=== PATIENT | female | born 2000 | race Two or more races ===

== ENCOUNTER → 2019-10-29 | Outpatient (CLI) | payer BC ==
--- NOTE | 2019-10-29 17:45 | RAD ---
EXAM: Ultrasound OB Greater than 14 weeks INDICATION: Reason: SIZE AND DATES / Spl. Instructions: / History: TECHNIQUE: Real-time obstetrical ultrasound was performed with permanent freeze-frame documentation. COMPARISON: None available FINDINGS: POSITION: Cephalic HEART RATE: 150 bpm RON: 15.1 cm PLACENTA: Posterior fundal CERVICAL LENGTH: 3.8 cm MATERNAL UTERUS: Unremarkable. MATERNAL ADNEXA: Unremarkable. AGE/DATES: Gestational Age by LMP: 20 weeks 3 days Gestation Age by US: 21 weeks 0 days EDC by LMP: March 14, 2020 EDC by US: March 10, 2020 WEIGHT: 354 grams +/- 52 grams PERCENTILE WEIGHT: Not estimated BIOMETRIC PARAMETERS: BPD: 5.4 cm corresponding with 22 weeks 3 days HC: 18.5 cm corresponding with 20 weeks 6 days AC: 14.9 cm corresponding with 20 weeks 1 day FL: 3.4 cm corresponding with 20 weeks 4 days ANATOMY: CARDIAC: Normal four chamber heart. Ventricle outflow tracts were not well visualized on this exam. UMBILICAL CORD: Normal 3 vessel cord. Normal cord insertion. BRAIN: Unremarkable. NOSE/LIPS: Not well seen SPINE: Unremarkable. EXTREMITIES: Not assessed in detail. STOMACH: Unremarkable. KIDNEYS: Unremarkable. BLADDER: Unremarkable. IMPRESSION: OB ultrasound demonstrating a single viable fetus in cephalic position. No gross abnormalities noted. nose and lips, extremities, and ventricular outflow tracts were not assessed in great detail on this exam. Estimated gestational age of 21 weeks 0 days and EDC of March 10, 2020. Electronically signed by: Greg Saldivar MD (10/29/2019 5:42 PM) [id number]
== END | disposition home or self-care (01) ==
LOC: US 10:17
PROVIDERS: ATTEND Obstetrics & Gynecology
DX: O26.842 Uterine size-date discrepancy, second trimester (principal); Z3A.21 21 weeks gestation of pregnancy
CPT/HCPCS: 76805

== ENCOUNTER → 2019-12-24 | Outpatient (CLI) | payer BC ==
[2019-12-24 11:15] LABS: BASO % 0 % (0-3); EOS % 1 % (0-3); HEMATOCRIT 32.4 % (36.0-47.0); HEMOGLOBIN 11.2 g/dL (12.0-15.5); LYMPH # 1.6 x10^3/uL (1.0-4.8); LYMPH % 22 % (24-48); MEAN CORPUSCULAR HEMOGLOBIN 32 pg (25-35); MEAN CORPUSCULAR HGB CONC 35 g/dL (31-37); MEAN CORPUSCULAR VOLUME 93 fL (79-100); MONO # 0.4 x10^3/uL (0.0-1.1); MONO % 5 % (0-9); NEUT % 72 % (31-73); PLATELET COUNT 210 x10^3/uL (140-400); RED BLOOD COUNT 3.48 x10^6/uL (3.50-5.40); RED CELL DISTRIBUTION WIDTH 13.3 % (11.5-14.5); WHITE BLOOD COUNT 6.9 x10^3/uL (4.0-11.0)
== END | disposition home or self-care (01) ==
LOC: LAB 09:23
PROVIDERS: ATTEND Obstetrics & Gynecology
DX: O09.93 Supervision of high risk pregnancy, unspecified, third trimester (principal); Z3A.29 29 weeks gestation of pregnancy
CPT/HCPCS: 36415; 82950; 85025

== ENCOUNTER 2020-03-03 11:15 | Inpatient (IN) | payer BC ==
[~2020-03-03] VITALS: Ht 177.8 cm; Wt 69.9 kg
[2020-03-03 12:06] LABS: BILIRUBIN,URINE NEGATIVE (NEG); CLARITY,URINE CLEAR; COLOR,URINE YELLOW; NITRITE,URINE NEGATIVE (NEG); PROTEIN,URINE NEGATIVE (NEG-TRACE); UROBILINOGEN,URINE 0.2 mg/dL (0.2 mg/dL)
[2020-03-03 12:15] LABS: AMNIO PT POSITIVE
[2020-03-03 12:23] LABS: BACTERIA,URINE MANY /HPF (0-FEW); RBC,URINE 0 /HPF (0-2)
[2020-03-03] MEDS ORDERED: IV RINGERS,LACTATED 1000ML 1,000 ML IV SCH (12:25)
[2020-03-03] MEDS ORDERED: CITRIC ACID/SODIUM CITRATE 30 ML SOLUTION. PO PRN (12:30)
[2020-03-03] MEDS ORDERED: LIDOCAINE 1% PF 30 ML VIAL. INJ PRN (12:30)
[2020-03-03] MEDS ORDERED: TERBUTALINE 1 MG/ML VIAL. SQ PRN (12:30)
[2020-03-03] MEDS ORDERED: 0.9 % SODIUM CHLORIDE 10 ML DISP.SYRIN. IV PRN ×2 (12:30→19:15)
[2020-03-03] MEDS ORDERED: IBUPROFEN 400 MG TABLET. PO PRN (12:30)
[2020-03-03] MEDS ORDERED: ACETAMINOPHEN 325 MG TABLET. PO PRN (12:30)
[2020-03-03] MEDS ORDERED: ONDANSETRON PF 4 MG/2 ML VIAL. IVP PRN (12:30)
[2020-03-03] MEDS ORDERED: fentaNYL PF VIAL 100 MCG/2 ML VIAL IVP PRN ×2 (12:30)
[2020-03-03] MEDS ORDERED: OXYTOCIN 30 UNIT/500 ML PREMIX 500 ML IV PRN ×3 (12:30→19:15)
[2020-03-03] MEDS ORDERED: OXYTOCIN 30 UNIT/500 ML PREMIX 500 ML IV ONE (13:00)
[2020-03-03] MEDS: IV RINGERS,LACTATED 1000ML 1,000 ML IV SCH ×3 (13:12→23:19)
[2020-03-03 13:23] LABS: BASO % 0 % (0-3); EOS % 0 % (0-3); HEMATOCRIT 35.6 % (36.0-47.0); HEMOGLOBIN 12.3 g/dL (12.0-15.5); LYMPH # 1.5 x10^3/uL (1.0-4.8); LYMPH % 19 % (24-48); MEAN CORPUSCULAR HEMOGLOBIN 31 pg (25-35); MEAN CORPUSCULAR HGB CONC 34 g/dL (31-37); MEAN CORPUSCULAR VOLUME 90 fL (79-100); MONO # 0.3 x10^3/uL (0.0-1.1); MONO % 4 % (0-9); NEUT % 76 % (31-73); PLATELET COUNT 214 x10^3/uL (140-400); RED BLOOD COUNT 3.96 x10^6/uL (3.50-5.40); RED CELL DISTRIBUTION WIDTH 13.5 % (11.5-14.5); WHITE BLOOD COUNT 7.9 x10^3/uL (4.0-11.0)
--- NOTE | 2020-03-03 17:15 | PDOC1 ---
OB - History Hx of Present Care: Good Care Ultrasounds: Normal mid trimester US Obstetrical Complications: None Medical Complications: None Past Family/Social History * Past Medical, Surgical, Family and Obstetric Histories reviewed from chart. Rubella: Immune RPR/VDRL: Negative GBS Status: Negative HBsAG: Negative OB - Chief Complaint & HPI Date of Admission: Date of Admission: Mar 03, 2020 at 11:15 Chief Complaint/History : 1 Para: 0 EGA: 38 Reason for admission: active labor, rupture of membranes Admission Nurse Assessment Rev: Yes OB - Admission Exam Physical Exam HEENT: Normal Heart: Regular Rate Lungs: Clear Abdomen: Gravid, Non tender, Soft Extremities: Edema Reflexes: Normal Cervical Dilatation: 1cm Effacement: 50% Station: -3 Membranes: Ruptured Amniotic Fluid: Clear Heart Rate: Normal Accelerations: Accelerations Present Contractions on Admission: 6-10 Minutes Apart Intensity: Mild Text A: 38 wks IUP SROM P: Admit labor management. ZHOU OLSON Jr, MD Mar 03, 2020 17:15
[2020-03-03] MEDS ORDERED: CITRIC ACID/SODIUM CITRATE 30 ML SOLUTION. PO ONE (17:45)
[2020-03-03] MEDS ORDERED: AZITHROMYCIN 500 MG in IV NORMAL SALINE 250ML 250 ML IV ONE (17:45)
[2020-03-03] MEDS ORDERED: ceFAZolin SODIUM IV Push 1 GM VIAL. IVP ONE ×2 (17:45→18:00)
[2020-03-03] MEDS ORDERED: KETOROLAC 30 MG/ML VIAL. IV PRN (18:00)
[2020-03-03] MEDS ORDERED: MORPHINE PF 10 MG/10 ML AMPUL. ONE (18:07)
[2020-03-03] MEDS ORDERED: fentaNYL PF VIAL 100 MCG/2 ML VIAL ONE (18:07)
[2020-03-03] MEDS ORDERED: FAMOTIDINE 20 MG/2 ML VIAL ONE (18:15)
[2020-03-03] MEDS ORDERED: ONDANSETRON PF 4 MG/2 ML VIAL. ONE (18:15)
[2020-03-03] MEDS ORDERED: METOCLOPRAMIDE HCL 10 MG/2 ML VIAL. ONE (18:15)
[2020-03-03] MEDS ORDERED: PHENYLEPHRINE in 0.9% NACL PF 1 MG/10 ML SYRINGE. IV ONE (18:25)
[2020-03-03] MEDS ORDERED: OXYTOCIN 10 UNIT/ML VIAL. ONE ×3 (18:25→18:48)
--- NOTE | 2020-03-03 19:02 | PDOC ---
OB DELIVERY OPERATIVE NOTE DATE 03/03/20 PRE OP DIAGNOSIS: NRFHT POST OP DIAGNOSIS: NRFHT OPERATION PERFORMED: L [facility] SURGEON Dr. Martinez ANESTHESIA PROPOSED: REGIONAL (Spinal) BLOOD LOSS 600 ml SPECIMEN placenta and infant OB Findings: Position (Vertex), Sex (Male), (8/9), Weight (3220 Gram), Nuchal Cord (x1) COMPLICATIONS none ADDITIONAL REMARKS pt. ZHOU Matson Jr, MD Mar 03, 2020 19:02
[2020-03-03] MEDS ORDERED: ZOLPIDEM 5 MG TABLET. PO PRN (19:15)
[2020-03-03] MEDS ORDERED: diphenhydrAMINE ORAL ELIXIR 12.5 MG/5 ML ML PO PRN (19:15)
[2020-03-03] MEDS ORDERED: ONDANSETRON PF 4 MG/2 ML VIAL. IV PRN (19:15)
[2020-03-03] MEDS ORDERED: MAG HYDROX/ALUMINUM HYD/SIMETH 30 ML ORAL.SUSP PO PRN (19:15)
--- NOTE | 2020-03-03 19:28 | OP ---
DATE OF SURGERY: 03/03/2020 PREOPERATIVE DIAGNOSES: 1. A 38 weeks intrauterine . 2. Spontaneous rupture of membranes. 3. intolerance of labor. POSTOPERATIVE DIAGNOSES: 1. A 38 weeks intrauterine . 2. Spontaneous rupture of membranes. 3. intolerance of labor. PROCEDURE: Primary low transverse section. SURGEON: Zhou Martinez MD ANESTHESIA: Spinal. ESTIMATED BLOOD LOSS: 600 mL. COMPLICATIONS: None. FINDINGS: Viable male , Apgars 8 and 9, weight 7 pounds 2 ounces. Three-vessel cord placenta delivered manually intact. SUMMARY: A 19-year-old 1 at 38 weeks, presented with spontaneous rupture of membranes. She had dilated up to 4 cm and began having intolerance to labor with nonreassuring heart tones. The patient was counseled on the risks, benefits and expectations of emergent section. She voiced clear understanding to proceed. DESCRIPTION OF PROCEDURE: The patient was taken to surgery suite and placed in dorsal supine position where she was prepped with ChloraPrep and draped in sterile fashion. After adequate anesthesia, Pfannenstiel skin incision was made with a scalpel down to and through the fascia. Fascia was extended laterally using curved Kelley scissors. The superior edge of fascia was grasped with two Lilibeth clamps and dissected free of the abdominal rectus muscle using blunt dissection along with Bovie cautery. The same process took place inferiorly. The abdominal rectus muscle dissected bluntly at the midline. Peritoneum was grasped with 2 hemostats and entered sharply with Metzenbaum scissors. This incision was extended superiorly as well as inferiorly. The Brijesh ring retractor was placed. A low transverse hysterotomy incision was made with scalpel down to the . Hysterotomy incision was extended laterally and superiorly digitally. With the aid of fundal pressure, the infant's head was delivered in a smooth atraumatic manner. Nuchal cord x 1 was visualized and reduced. With additional fundal pressure, the anterior shoulder was delivered followed by posterior shoulder and rest of the male was delivered. Infant was suctioned with a bulb syringe orally and nasally, umbilical cord was clamped twice and cut. Umbilical cord blood as well as arterial pH was then obtained. Three-vessel cord placenta was delivered manually intact. The uterus was then exteriorized and cleared of clot and debris with moist lap. Hysterotomy incision was reapproximated using #1 Vicryl suture in running locked fashion, imbricated layer of #1 Vicryl suture was utilized in a running fashion for better hemostasis. Uterus palpated firm. Fallopian tubes and ovaries appeared normal bilaterally. Posterior cul-de-sac was cleared of clot and debris with moist lap. The uterus was then returned to the abdomen. The pericolic gutters were cleared of clot and debris with moist lap. Hysterotomy incision was reviewed and hemostatic. The Brijesh ring retractor was removed. The peritoneum was reapproximated with #1 Vicryl suture in running fashion. The abdominal rectus muscles were reapproximated with #1 Vicryl suture in running fashion. Fascia was reapproximated using 0 Vicryl suture in running fashion. Skin was reapproximated using 4-0 Vicryl suture in subcuticular manner. The patient tolerated the procedure well and was taken to recovery room in stable condition. Sponge and needle count correct x 3. ZHOU MARTINEZ MD DR: GILBERT/tyrese JOB#: [id number] / [id number]
[2020-03-03] MEDS: KETOROLAC 30 MG/ML VIAL. IV PRN (21:09)
[2020-03-03 23:45] VITALS: BP 131/78
[2020-03-04] MEDS: KETOROLAC 30 MG/ML VIAL. IV PRN (05:33)
[2020-03-04 07:42] LABS: BASO % 0 % (0-3); EOS % 0 % (0-3); HEMATOCRIT 26.8 % (36.0-47.0); HEMOGLOBIN 9.2 g/dL (12.0-15.5); LYMPH # 1.9 x10^3/uL (1.0-4.8); LYMPH % 22 % (24-48); MEAN CORPUSCULAR HEMOGLOBIN 31 pg (25-35); MEAN CORPUSCULAR HGB CONC 34 g/dL (31-37); MEAN CORPUSCULAR VOLUME 89 fL (79-100); MONO # 0.5 x10^3/uL (0.0-1.1); MONO % 6 % (0-9); NEUT # 6.1 x10^3/uL (1.8-7.7); NEUT % 71 % (31-73); PLATELET COUNT 161 x10^3/uL (140-400); RED CELL DISTRIBUTION WIDTH 13.2 % (11.5-14.5); WHITE BLOOD COUNT 8.6 x10^3/uL (4.0-11.0)
--- NOTE | 2020-03-04 08:52 | PDOC ---
OB Progress Note Date of Service 03/04/20 Time of Evaluation 0850 Notes Pt. feeling well. No complaints. Lab Laboratory Tests Test 03/03/20 11:30 03/03/20 11:50 03/03/20 12:45 03/03/20 12:52 Urine Collection Type Unknown Urine Color Yellow Urine Clarity Clear Urine pH 7.0 (<5.0-8.0) Urine Specific [place] 1.010 (1.000-1.030) Urine Protein Negative mg/dL (NEG-TRACE) Urine Glucose (UA) Negative mg/dL (NEG) Urine Ketones (Stick) Negative mg/dL (NEG) Urine Blood Negative (NEG) Urine Nitrite Negative (NEG) Urine Bilirubin Negative (NEG) Urine Urobilinogen Dipstick 0.2 mg/dL (0.2 mg/dL) Urine Leukocyte Esterase Small (NEG) Urine RBC 0 /HPF (0-2) Urine WBC 1-4 /HPF (0-4) Urine Squamous Epithelial Cells Occ /LPF Urine Bacteria Many /HPF (0-FEW) Amniotic Fluid Swab Test Positive White Blood Count 7.9 x10^3/uL (4.0-11.0) Red Blood Count 3.96 x10^6/uL (3.50-5.40) Hemoglobin 12.3 g/dL (12.0-15.5) Hematocrit 35.6 % (36.0-47.0) Mean Corpuscular Volume 90 fL (79-100) Mean Corpuscular Hemoglobin 31 pg (25-35) Mean Corpuscular Hemoglobin Concent 34 g/dL (31-37) Red Cell Distribution Width 13.5 % (11.5-14.5) Platelet Count 214 x10^3/uL (140-400) Neutrophils (%) (Auto) 76 % (31-73) Lymphocytes (%) (Auto) 19 % (24-48) Monocytes (%) (Auto) 4 % (0-9) Eosinophils (%) (Auto) 0 % (0-3) Basophils (%) (Auto) 0 % (0-3) Neutrophils # (Auto) 6.0 x10^3/uL (1.8-7.7) Lymphocytes # (Auto) 1.5 x10^3/uL (1.0-4.8) Monocytes # (Auto) 0.3 x10^3/uL (0.0-1.1) Eosinophils # (Auto) 0.0 x10^3/uL (0.0-0.7) Basophils # (Auto) 0.0 x10^3/uL (0.0-0.2) Treponema pallidum Antibody Nonreactive (Nonreactive) SARS-CoV-2 Antigen (Rapid) Negative (NEGATIVE) Test 03/04/20 06:50 White Blood Count 8.6 x10^3/uL (4.0-11.0) Red Blood Count 3.00 x10^6/uL (3.50-5.40) Hemoglobin 9.2 g/dL (12.0-15.5) Hematocrit 26.8 % (36.0-47.0) Mean Corpuscular Volume 89 fL (79-100) Mean Corpuscular Hemoglobin 31 pg (25-35) Mean Corpuscular Hemoglobin Concent 34 g/dL (31-37) Red Cell Distribution Width 13.2 % (11.5-14.5) Platelet Count 161 x10^3/uL (140-400) Neutrophils (%) (Auto) 71 % (31-73) Lymphocytes (%) (Auto) 22 % (24-48) Monocytes (%) (Auto) 6 % (0-9) Eosinophils (%) (Auto) 0 % (0-3) Basophils (%) (Auto) 0 % (0-3) Neutrophils # (Auto) 6.1 x10^3/uL (1.8-7.7) Lymphocytes # (Auto) 1.9 x10^3/uL (1.0-4.8) Monocytes # (Auto) 0.5 x10^3/uL (0.0-1.1) Eosinophils # (Auto) 0.0 x10^3/uL (0.0-0.7) Basophils # (Auto) 0.0 x10^3/uL (0.0-0.2) Laboratory Tests Test 03/03/20 11:30 03/03/20 11:50 03/03/20 12:45 03/03/20 12:52 Urine Collection Type Unknown Urine Color Yellow Urine Clarity Clear Urine pH 7.0 (<5.0-8.0) Urine Specific [place] 1.010 (1.000-1.030) Urine Protein Negative mg/dL (NEG-TRACE) Urine Glucose (UA) Negative mg/dL (NEG) Urine Ketones (Stick) Negative mg/dL (NEG) Urine Blood Negative (NEG) Urine Nitrite Negative (NEG) Urine Bilirubin Negative (NEG) Urine Urobilinogen Dipstick 0.2 mg/dL (0.2 mg/dL) Urine Leukocyte Esterase Small (NEG) Urine RBC 0 /HPF (0-2) Urine WBC 1-4 /HPF (0-4) Urine Squamous Epithelial Cells Occ /LPF Urine Bacteria Many /HPF (0-FEW) Amniotic Fluid Swab Test Positive White Blood Count 7.9 x10^3/uL (4.0-11.0) Red Blood Count 3.96 x10^6/uL (3.50-5.40) Hemoglobin 12.3 g/dL (12.0-15.5) Hematocrit 35.6 % (36.0-47.0) Mean Corpuscular Volume 90 fL (79-100) Mean Corpuscular Hemoglobin 31 pg (25-35) Mean Corpuscular Hemoglobin Concent 34 g/dL (31-37) Red Cell Distribution Width 13.5 % (11.5-14.5) Platelet Count 214 x10^3/uL (140-400) Neutrophils (%) (Auto) 76 % (31-73) Lymphocytes (%) (Auto) 19 % (24-48) Monocytes (%) (Auto) 4 % (0-9) Eosinophils (%) (Auto) 0 % (0-3) Basophils (%) (Auto) 0 % (0-3) Neutrophils # (Auto) 6.0 x10^3/uL (1.8-7.7) Lymphocytes # (Auto) 1.5 x10^3/uL (1.0-4.8) Monocytes # (Auto) 0.3 x10^3/uL (0.0-1.1) Eosinophils # (Auto) 0.0 x10^3/uL (0.0-0.7) Basophils # (Auto) 0.0 x10^3/uL (0.0-0.2) Treponema pallidum Antibody Nonreactive (Nonreactive) SARS-CoV-2 Antigen (Rapid) Negative (NEGATIVE) Test 03/04/20 06:50 White Blood Count 8.6 x10^3/uL (4.0-11.0) Red Blood Count 3.00 x10^6/uL (3.50-5.40) Hemoglobin 9.2 g/dL (12.0-15.5) Hematocrit 26.8 % (36.0-47.0) Mean Corpuscular Volume 89 fL (79-100) Mean Corpuscular Hemoglobin 31 pg (25-35) Mean Corpuscular Hemoglobin Concent 34 g/dL (31-37) Red Cell Distribution Width 13.2 % (11.5-14.5) Platelet Count 161 x10^3/uL (140-400) Neutrophils (%) (Auto) 71 % (31-73) Lymphocytes (%) (Auto) 22 % (24-48) Monocytes (%) (Auto) 6 % (0-9) Eosinophils (%) (Auto) 0 % (0-3) Basophils (%) (Auto) 0 % (0-3) Neutrophils # (Auto) 6.1 x10^3/uL (1.8-7.7) Lymphocytes # (Auto) 1.9 x10^3/uL (1.0-4.8) Monocytes # (Auto) 0.5 x10^3/uL (0.0-1.1) Eosinophils # (Auto) 0.0 x10^3/uL (0.0-0.7) Basophils # (Auto) 0.0 x10^3/uL (0.0-0.2) Medications Current Medications Ringer's Solution 1,000 ml @ 125 mls/hr Q8H IV Last administered on 03/03/20at 23:19; Start 03/03/20 at 11:41 Sodium Chloride (Normal Saline Flush) 3 ml QSHIFT PRN IV AFTER MEDS AND BLOOD DRAWS; Start 03/03/20 at 12:30 Ringer's Solution 1,000 ml @ 125 mls/hr Q8H IV Last administered on 03/03/20at 14:32; Start 03/03/20 at 12:25 Fentanyl Citrate (Fentanyl 2ml Vial) 50 mcg PRN Q30MIN PRN IVP Mild to moderate pain; Start 03/03/20 at 12:30 Fentanyl Citrate (Fentanyl 2ml Vial) 100 mcg PRN Q30MIN PRN IVP Severe pain; Start 03/03/20 at 12:30 Acetaminophen (Tylenol) 650 mg PRN Q6HRS PRN PO MILD PAIN / TEMP > 100.3'F; Start 03/03/20 at 12:30 Ondansetron HCl (Zofran) 4 mg PRN Q4HRS PRN IVP NAUSEA/VOMITING; Start 03/03/20 at 12:30; Stop 03/03/20 at 19:15; Status DC Citric Acid/ Sodium Citrate (Bicitra) 30 ml 1X PRN PRN PO DYSPEPSIA; Start 03/03/20 at 12:30; Stop 03/04/20 at 12:29 Terbutaline Sulfate (Brethine) 0.25 mg 1X PRN PRN SQ SEE COMMENTS Last administered on 03/03/20at 17:42; Start 03/03/20 at 12:30; Stop 03/04/20 at 12:29 Lidocaine HCl (Xylocaine 1% Pf 30ml Vial) 30 ml 1X PRN PRN INJ SEE COMMENTS; Start 03/03/20 at 12:30; Stop 03/05/20 at 12:29 Oxytocin/Sodium Chloride 500 ml @ 0 mls/hr CONT PRN IV SEE I/O RECORD Last administered on 03/03/20at 13:12; Start 03/03/20 at 12:30 Oxytocin/Sodium Chloride 500 ml @ 0 mls/hr CONT PRN PRN IV Post delivery bleeding; Start 03/03/20 at 12:30 Ibuprofen (Motrin) 800 mg PRN Q6HRS PRN PO MODERATE PAIN; Start 03/03/20 at 12:30; Stop 03/03/20 at 19:15; Status DC Oxytocin/Sodium Chloride 500 ml @ As Directed STK-MED ONCE IV ; Start 03/03/20 at 13:00; Stop 03/03/20 at 13:01; Status DC Cefazolin Sodium (Ancef) 1 gm 1X ONCE IVP ; Start 03/03/20 at 17:45; Stop 03/03/20 at 17:46; Status DC Citric Acid/ Sodium Citrate (Bicitra) 30 ml 1X ONCE PO Last administered on 03/03/20at 17:47; Start 03/03/20 at 17:45; Stop 03/03/20 at 17:46; Status DC Azithromycin 500 mg/Sodium Chloride 250 ml @ 250 mls/hr 1X ONCE IV ; Start 03/03/20 at 17:45; Stop 03/03/20 at 18:44; Status DC Ketorolac Tromethamine (Toradol 30mg Vial) 30 mg PRN Q6HRS PRN IV PAIN; Start 03/03/20 at 18:00; Stop 03/03/20 at 19:15; Status DC Morphine Sulfate (Morphine Preservative Free) 10 mg STK-MED ONCE .ROUTE ; Start 03/03/20 at 18:07; Stop 03/03/20 at 18:08; Status DC Fentanyl Citrate (Fentanyl 2ml Vial) 100 mcg STK-MED ONCE .ROUTE ; Start 03/03/20 at 18:07; Stop 03/03/20 at 18:08; Status DC Famotidine (Pepcid Vial) 20 mg STK-MED ONCE .ROUTE ; Start 03/03/20 at 18:15; Stop 03/03/20 at 18:15; Status DC Metoclopramide HCl (Reglan Vial) 10 mg STK-MED ONCE .ROUTE ; Start 03/03/20 at 18:15; Stop 03/03/20 at 18:15; Status DC Ondansetron HCl (Zofran) 4 mg STK-MED ONCE .ROUTE ; Start 03/03/20 at 18:15; Stop 03/03/20 at 18:15; Status DC Phenylephrine HCl (PHENYLEPHRINE in 0.9% NACL PF) 1 mg STK-MED ONCE IV ; Start 03/03/20 at 18:25; Stop 03/03/20 at 18:25; Status DC Oxytocin (Pitocin) 10 unit STK-MED ONCE .ROUTE ; Start 03/03/20 at 18:25; Stop 03/03/20 at 18:25; Status DC Oxytocin (Pitocin) 10 unit STK-MED ONCE .ROUTE ; Start 03/03/20 at 18:48; Stop 03/03/20 at 18:49; Status DC Oxytocin (Pitocin) 10 unit STK-MED ONCE .ROUTE ; Start 03/03/20 at 18:48; Stop 03/03/20 at 18:49; Status DC Sodium Chloride (Normal Saline Flush) 3 ml QSHIFT PRN IV AFTER MEDS AND BLOOD DRAWS; Start 03/03/20 at 19:15 Oxytocin/Sodium Chloride 500 ml @ 125 mls/hr CONT PRN IV EXCESSIVE POST- BLEEDING; Start 03/03/20 at 19:15; Stop 03/04/20 at 03:14; Status DC Ibuprofen (Motrin) 800 mg PRN Q8HRS PRN PO INFLAMMATION; Start 03/03/20 at 19:15 Ondansetron HCl (Zofran) 4 mg PRN Q6HRS PRN IV NAUSEA/VOMITING; Start 03/03/20 at 19:15 Docusate Sodium (Colace) 100 mg PRN BID PRN PO HARD STOOL; Start 03/03/20 at 19:15 Al Hydroxide/Mg Hydroxide (Mylanta Plus Xs) 30 ml PRN Q4HRS PRN PO HEARTBURN / GAS; Start 03/03/20 at 19:15 Simethicone (Gas-X) 80 mg PRN AFTMEALHC PRN PO GAS / BLOATING; Start 03/03/20 at 19:15 Diphenhydramine HCl (Benadryl Oral Elixir) 12.5 mg PRN Q6HRS PRN PO ITCHING; Start 03/03/20 at 19:15 Ferrous Sulfate (Feosol) 325 mg BIDWMEALS PO ; Start 03/04/20 at 08:00 Zolpidem Tartrate (Ambien) 5 mg PRN QHS PRN PO INSOMNIA, MAY REPEAT X1; Start 03/03/20 at 19:15 Oxycodone/ Acetaminophen (Percocet 5/325) 2 tab PRN Q4HRS PRN PO MODERATE PAIN, SEVERE PAIN; Start 03/03/20 at 19:15 Ketorolac Tromethamine (Toradol 30mg Vial) 30 mg PRN Q6HRS PRN IV PAIN Last administered on 03/04/20at 05:33; Start 03/03/20 at 19:15; Stop 03/08/20 at 19:14 Multivitamins (Thera M Plus) 1 tab DAILY PO ; Start 03/04/20 at 09:00 Exam Abd:soft, mild tenderness, fundus firm Bandage removed. INcision site: clean, dry and intact Assessment POD#1 s/p c/s Plan of Care: Continue current Tx, Mgmt ZHOU OLSON Jr, MD Mar 04, 2020 08:52
[2020-03-04] MEDS: DOCUSATE SODIUM 100 MG CAPSULE. PO PRN (09:16)
[2020-03-04] MEDS: SIMETHICONE 80 MG TAB.CHEW PO PRN ×2 (09:16→16:28)
[2020-03-04] MEDS: oxyCODONE/APAP 5/325 1 TAB TABLET PO PRN ×2 (09:16→23:26)
[2020-03-04] MEDS: MULTIVITAMIN with MINERAL TABLET. PO SCH (09:16)
[2020-03-04] MEDS: FERROUS SULFATE 325 MG TABLET. PO SCH ×2 (09:16→16:28)
[2020-03-04 10:05] VITALS: BP 108/68
[2020-03-04 14:22] VITALS: BP 118/74
[2020-03-04] MEDS: IBUPROFEN 400 MG TABLET. PO PRN ×2 (14:30→21:48)
[2020-03-04 18:19] VITALS: BP 115/70
[2020-03-04 22:12] VITALS: BP 125/80
[2020-03-05 00:55] VITALS: BP 114/71
[2020-03-05 05:14] VITALS: BP 136/60
[2020-03-05] MEDS: FERROUS SULFATE 325 MG TABLET. PO SCH ×2 (10:30→18:25)
[2020-03-05] MEDS: DOCUSATE SODIUM 100 MG CAPSULE. PO PRN (10:30)
[2020-03-05] MEDS: IBUPROFEN 400 MG TABLET. PO PRN ×2 (10:31→18:25)
[2020-03-05] MEDS: MULTIVITAMIN with MINERAL TABLET. PO SCH (10:31)
[2020-03-05 11:45] VITALS: BP 128/61
[2020-03-05 15:24] VITALS: BP 118/64
--- NOTE | 2020-03-05 16:49 | PDOC ---
OB Progress Note Date of Service 03/05/20 Time of Evaluation 1645 Notes Pt. feeling well. No complaints. Lab Laboratory Tests Test 03/04/20 06:50 White Blood Count 8.6 x10^3/uL (4.0-11.0) Red Blood Count 3.00 x10^6/uL (3.50-5.40) Hemoglobin 9.2 g/dL (12.0-15.5) Hematocrit 26.8 % (36.0-47.0) Mean Corpuscular Volume 89 fL (79-100) Mean Corpuscular Hemoglobin 31 pg (25-35) Mean Corpuscular Hemoglobin Concent 34 g/dL (31-37) Red Cell Distribution Width 13.2 % (11.5-14.5) Platelet Count 161 x10^3/uL (140-400) Neutrophils (%) (Auto) 71 % (31-73) Lymphocytes (%) (Auto) 22 % (24-48) Monocytes (%) (Auto) 6 % (0-9) Eosinophils (%) (Auto) 0 % (0-3) Basophils (%) (Auto) 0 % (0-3) Neutrophils # (Auto) 6.1 x10^3/uL (1.8-7.7) Lymphocytes # (Auto) 1.9 x10^3/uL (1.0-4.8) Monocytes # (Auto) 0.5 x10^3/uL (0.0-1.1) Eosinophils # (Auto) 0.0 x10^3/uL (0.0-0.7) Basophils # (Auto) 0.0 x10^3/uL (0.0-0.2) Medications Current Medications Ringer's Solution 1,000 ml @ 125 mls/hr Q8H IV Last administered on 03/03/20at 23:19; Start 03/03/20 at 11:41; Stop 03/04/20 at 09:34; Status DC Sodium Chloride (Normal Saline Flush) 3 ml QSHIFT PRN IV AFTER MEDS AND BLOOD DRAWS; Start 03/03/20 at 12:30; Status Cancel Ringer's Solution 1,000 ml @ 125 mls/hr Q8H IV Last administered on 03/03/20at 14:32; Start 03/03/20 at 12:25 Fentanyl Citrate (Fentanyl 2ml Vial) 50 mcg PRN Q30MIN PRN IVP Mild to moderate pain; Start 03/03/20 at 12:30 Fentanyl Citrate (Fentanyl 2ml Vial) 100 mcg PRN Q30MIN PRN IVP Severe pain; Start 03/03/20 at 12:30 Acetaminophen (Tylenol) 650 mg PRN Q6HRS PRN PO MILD PAIN / TEMP > 100.3'F; Start 03/03/20 at 12:30 Ondansetron HCl (Zofran) 4 mg PRN Q4HRS PRN IVP NAUSEA/VOMITING; Start 03/03/20 at 12:30; Stop 03/03/20 at 19:15; Status DC Citric Acid/ Sodium Citrate (Bicitra) 30 ml 1X PRN PRN PO DYSPEPSIA; Start 03/03/20 at 12:30; Stop 03/04/20 at 12:29; Status DC Terbutaline Sulfate (Brethine) 0.25 mg 1X PRN PRN SQ SEE COMMENTS Last administered on 03/03/20at 17:42; Start 03/03/20 at 12:30; Stop 03/04/20 at 12:29; Status DC Lidocaine HCl (Xylocaine 1% Pf 30ml Vial) 30 ml 1X PRN PRN INJ SEE COMMENTS; Start 03/03/20 at 12:30; Stop 03/05/20 at 12:29; Status DC Oxytocin/Sodium Chloride 500 ml @ 0 mls/hr CONT PRN IV SEE I/O RECORD Last administered on 03/03/20at 13:12; Start 03/03/20 at 12:30 Oxytocin/Sodium Chloride 500 ml @ 0 mls/hr CONT PRN PRN IV Post delivery bleeding; Start 03/03/20 at 12:30 Ibuprofen (Motrin) 800 mg PRN Q6HRS PRN PO MODERATE PAIN; Start 03/03/20 at 12:30; Stop 03/03/20 at 19:15; Status DC Oxytocin/Sodium Chloride 500 ml @ As Directed STK-MED ONCE IV ; Start 03/03/20 at 13:00; Stop 03/03/20 at 13:01; Status DC Cefazolin Sodium (Ancef) 1 gm 1X ONCE IVP ; Start 03/03/20 at 17:45; Stop 03/03/20 at 17:46; Status DC Citric Acid/ Sodium Citrate (Bicitra) 30 ml 1X ONCE PO Last administered on 03/03/20at 17:47; Start 03/03/20 at 17:45; Stop 03/03/20 at 17:46; Status DC Azithromycin 500 mg/Sodium Chloride 250 ml @ 250 mls/hr 1X ONCE IV ; Start 03/03/20 at 17:45; Stop 03/03/20 at 18:44; Status DC Ketorolac Tromethamine (Toradol 30mg Vial) 30 mg PRN Q6HRS PRN IV PAIN; Start 03/03/20 at 18:00; Stop 03/03/20 at 19:15; Status DC Morphine Sulfate (Morphine Preservative Free) 10 mg STK-MED ONCE .ROUTE ; Start 03/03/20 at 18:07; Stop 03/03/20 at 18:08; Status DC Fentanyl Citrate (Fentanyl 2ml Vial) 100 mcg STK-MED ONCE .ROUTE ; Start 03/03/20 at 18:07; Stop 03/03/20 at 18:08; Status DC Famotidine (Pepcid Vial) 20 mg STK-MED ONCE .ROUTE ; Start 03/03/20 at 18:15; Stop 03/03/20 at 18:15; Status DC Metoclopramide HCl (Reglan Vial) 10 mg STK-MED ONCE .ROUTE ; Start 03/03/20 at 18:15; Stop 03/03/20 at 18:15; Status DC Ondansetron HCl (Zofran) 4 mg STK-MED ONCE .ROUTE ; Start 03/03/20 at 18:15; Stop 03/03/20 at 18:15; Status DC Phenylephrine HCl (PHENYLEPHRINE in 0.9% NACL PF) 1 mg STK-MED ONCE IV ; Start 03/03/20 at 18:25; Stop 03/03/20 at 18:25; Status DC Oxytocin (Pitocin) 10 unit STK-MED ONCE .ROUTE ; Start 03/03/20 at 18:25; Stop 03/03/20 at 18:25; Status DC Oxytocin (Pitocin) 10 unit STK-MED ONCE .ROUTE ; Start 03/03/20 at 18:48; Stop 03/03/20 at 18:49; Status DC Oxytocin (Pitocin) 10 unit STK-MED ONCE .ROUTE ; Start 03/03/20 at 18:48; Stop 03/03/20 at 18:49; Status DC Sodium Chloride (Normal Saline Flush) 3 ml QSHIFT PRN IV AFTER MEDS AND BLOOD DRAWS; Start 03/03/20 at 19:15 Oxytocin/Sodium Chloride 500 ml @ 125 mls/hr CONT PRN IV EXCESSIVE POST- BLEEDING; Start 03/03/20 at 19:15; Stop 03/04/20 at 03:14; Status DC Ibuprofen (Motrin) 800 mg PRN Q8HRS PRN PO INFLAMMATION Last administered on 03/05/20at 10:31; Start 03/03/20 at 19:15 Ondansetron HCl (Zofran) 4 mg PRN Q6HRS PRN IV NAUSEA/VOMITING; Start 03/03/20 at 19:15 Docusate Sodium (Colace) 100 mg PRN BID PRN PO HARD STOOL Last administered on 03/05/20at 10:30; Start 03/03/20 at 19:15 Al Hydroxide/Mg Hydroxide (Mylanta Plus Xs) 30 ml PRN Q4HRS PRN PO HEARTBURN / GAS; Start 03/03/20 at 19:15 Simethicone (Gas-X) 80 mg PRN AFTMEALHC PRN PO GAS / BLOATING Last administered on 03/04/20at 16:28; Start 03/03/20 at 19:15 Diphenhydramine HCl (Benadryl Oral Elixir) 12.5 mg PRN Q6HRS PRN PO ITCHING; Start 03/03/20 at 19:15 Ferrous Sulfate (Feosol) 325 mg BIDWMEALS PO Last administered on 03/05/20at 10:30; Start 03/04/20 at 08:00 Zolpidem Tartrate (Ambien) 5 mg PRN QHS PRN PO INSOMNIA, MAY REPEAT X1; Start 03/03/20 at 19:15 Oxycodone/ Acetaminophen (Percocet 5/325) 2 tab PRN Q4HRS PRN PO MODERATE PAIN, SEVERE PAIN Last administered on 03/04/20at 23:26; Start 03/03/20 at 19:15 Ketorolac Tromethamine (Toradol 30mg Vial) 30 mg PRN Q6HRS PRN IV PAIN Last administered on 03/04/20at 05:33; Start 03/03/20 at 19:15; Stop 03/08/20 at 19:14 Multivitamins (Thera M Plus) 1 tab DAILY PO Last administered on 03/05/20at 10:31; Start 03/04/20 at 09:00 Cefazolin Sodium (Ancef) 1 gm STK-MED ONCE IVP ; Start 03/03/20 at 18:00; Stop 03/04/20 at 12:58; Status DC Exam Abd: soft, non tender, fundus firm Incision site: clean, dry and intact Assessment POD#2 s/p c/s Plan of Care: Continue current Tx, Mgmt ZHOU OLSON Jr, MD Mar 05, 2020 16:49
[2020-03-05] MEDS: oxyCODONE/APAP 5/325 1 TAB TABLET PO PRN (18:25)
[2020-03-05 21:44] VITALS: BP 111/71
[2020-03-06] MEDS: oxyCODONE/APAP 5/325 1 TAB TABLET PO PRN ×3 (01:47→14:06)
[2020-03-06 05:11] VITALS: BP 119/76
--- NOTE | 2020-03-06 08:36 | PDOC3 ---
OB DISCHARGE SUMMARY DATE OF ADMISSION: 03/03/20 DATE OF DISCHARGE: 03/06/20 REASON FOR ADMISSION: Onset of labor INTRAPARTUM PROCEDURES: : Low Cerv Trans DISCHARGE DIAGNOSIS: Term Delivered DISCHARGE INFORMATION: Activity (ad gita), Diet (regular), Instructions (pelvic rest x 6 wks, no driving x 2 wks, no lifting > 20 lbs. x 6 wks) HOSPITAL COURSE Term gestation delivered via section without complications. ZHOU OLSON Jr, MD Mar 06, 2020 08:36
[2020-03-06] MEDS ORDERED: DOCU-153 PO (08:38)
[2020-03-06] MEDS ORDERED: OXYC1TAB15 PO (08:38)
[2020-03-06] MEDS ORDERED: IBUP-1027 PO (08:38)
--- NOTE | 2020-03-06 08:38 | DISCH ---
DISCHARGE INSTRUCTIONS Condition on Discharge Condition on Discharge: Stable Activity After Discharge Activity Instructions for Disc: Activity as tolerated Lifting Instructions after Dis: No heavy lifting Driving Instructions after Dis: No driving for 2 weeks Diet after Discharge Diet after Discharge: Regular Diet Texture: Regular Contacting the [facility] after DC Call your doctor for: Concerns you may have Follow-Up Follow up with: Dr. Martinez in 2 wks ZHOU MARTINEZ Jr, MD Mar 06, 2020 08:38
[2020-03-06] MEDS: MULTIVITAMIN with MINERAL TABLET. PO SCH (09:39)
[2020-03-06] MEDS: FERROUS SULFATE 325 MG TABLET. PO SCH (09:39)
[2020-03-06] MEDS: DOCUSATE SODIUM 100 MG CAPSULE. PO PRN (09:39)
[2020-03-06] MEDS: IBUPROFEN 400 MG TABLET. PO PRN (09:40)
[2020-03-06 15:00] VITALS: BP 119/72
--- NOTE | 2020-03-06 15:30 | NUR ---
Discharge and follow up instructions reviewed and given to pt. Pt denied any questions or any complaints at this time. Pt ambulated out of the hospital with staff and her S/O and her by her side.
== END 2020-03-06 15:30 | disposition home or self-care (01) | DRG 788 ==
LOC: 3 SO LND 11:15 → OBSVTOIN 12:38 → 3 NORTH 23:16
PROVIDERS: ADMIT Obstetrics & Gynecology; ATTEND Obstetrics & Gynecology
PROC: 10D00Z1 Extraction of Products of Conception, Low, Open Approach (ICD-10-PCS; principal; 2020-03-03)
DX: O69.81X0 Labor and delivery complicated by cord around neck, without compression, not applicable or unspecified (principal); O76 Abnormality in fetal heart rate and rhythm complicating labor and delivery; Z37.0 Single live birth; Z3A.38 38 weeks gestation of pregnancy; Z20.828 Contact with and (suspected) exposure to other viral communicable diseases
CPT/HCPCS: 36415; 81001; 84112; 85025; 86592; 86850; 86900; 86901; 87077; 87086; 87186; 87426; G0379; J0690; J1885; J2274; J2370; J2405; J2590; J2765; J3010; J3105; J3490; J7120; U0003; G0378

== ENCOUNTER 2021-01-26 17:53 | Emergency (ER) | payer BC ==
[~2021-01-26 17:53] MED LIST: DOCU-148 PO; IBUP-1027 PO; OXYC1TAB15 PO
== END 2021-01-26 21:24 | disposition left against medical advice (07) ==
LOC: ER 17:53
DX: R10.9 Unspecified abdominal pain (principal); Z53.21 Procedure and treatment not carried out due to patient leaving prior to being seen by health care provider